=== PATIENT | male | born 1995 | race American Indian/Alaskan Native ===

== ENCOUNTER 2019-11-12 15:00 | Emergency (ER) | payer OTHER ==
[2019-11-12 15:14] VITALS: BP 132/61
[2019-11-12] MEDS ORDERED: KETOROLAC 30 MG/1 ML INJ IV ONE (16:33)
[2019-11-12] MEDS ORDERED: HYDROmorphone 1 MG/1 ML INJ IV ONE (16:33)
--- NOTE | 2019-11-12 17:47 | Emergency Department Report ---
ED Extremity Problem HPI - General Chief complaint: Shoulder Injury Stated complaint: SHOULDER PAIN Time Seen by Provider: 11/12/19 16:32 Source: patient Mode of arrival: Ambulatory Limitations: No Limitations - History of Present Illness Initial comments: Patient is a 24-year-old F [place] male who is currently in police custody who is presenting with right shoulder pain. Patient states he was playing basketball and his arm got tangled with another player. Patient states he felt immediate 10 out of 10 pain in right shoulder. Pain is worse with movement better with rest. He denies any other injury at this time Severity scale (0 -10): 10 - Related Data Previous Rx's Medication Instructions Recorded Last Taken Type Ibuprofen [Motrin 800 MG tab] 800 mg PO Q8HR PRN #10 tablet 11/12/19 Unknown Rx methOCARBAMOL [Robaxin TAB] 500 mg PO Q6H PRN #14 tablet 11/12/19 Unknown Rx Allergies Allergy/AdvReac Type Severity Reaction Status Date / Time amoxicillin Allergy Unknown Verified 11/12/19 15:08 ED Review of Systems ROS: Stated complaint: SHOULDER PAIN Other details as noted in HPI Comment: All other systems reviewed and negative ED Past Medical Hx - Past Medical History Previous Medical History?: Yes Hx Asthma: Yes - Surgical History Past Surgical History?: Yes Additional Surgical History: tonsillectomy - Social History Smoking Status: Never Smoker Substance Use Type: None - Medications Home Medications: Home Medications Medication Instructions Recorded Confirmed Last Taken Type Ibuprofen [Motrin 800 MG tab] 800 mg PO Q8HR PRN #10 tablet 11/12/19 Unknown Rx methOCARBAMOL [Robaxin TAB] 500 mg PO Q6H PRN #14 tablet 11/12/19 Unknown Rx ED Physical Exam - General Limitations: No Limitations General appearance: alert, in no apparent distress - Head Head exam: Present: atraumatic, normocephalic - Eye Eye exam: Present: normal appearance - ENT ENT exam: Present: mucous membranes moist - Neck Neck exam: Present: normal inspection - Respiratory Respiratory exam: Present: normal lung sounds bilaterally. Absent: respiratory distress, wheezes, rales - Cardiovascular Cardiovascular Exam: Present: regular rate, normal rhythm. Absent: systolic murmur, diastolic murmur, rubs, gallop - GI/Abdominal GI/Abdominal exam: Present: soft, normal bowel sounds. Absent: distended, tenderness, guarding - Rectal Rectal exam: Present: deferred - Extremities Exam Extremities exam: Present: normal inspection - Expanded Upper Extremity Exam Right Shoulder Exam: Present: tenderness, deformity, dislocation, tenderness over AC joint. Absent: normal inspection, full ROM Upper Arm exam: Present: normal inspection. Absent: tenderness Elbow exam: Present: normal inspection, full ROM. Absent: tenderness Forearm Wrist exam: Present: normal inspection. Absent: tenderness Hand Wrist exam: Present: normal inspection. Absent: full ROM Neurosensory exam: Present: radial nerve intact, ulnar nerve intact, median nerve intact Vascular: Present: normal capillary refill. Absent: vascular compromise - Back Exam Back exam: Present: normal inspection - Neurological Exam Neurological exam: Present: alert, oriented X3 - Psychiatric Psychiatric exam: Present: normal affect, normal mood - Skin Skin exam: Present: warm, dry, intact, normal color. Absent: rash ED Course Vital Signs 11/12/19 11/12/19 11/12/19 15:08 16:42 16:50 Temperature 97.7 F Pulse Rate 57 L Respiratory 16 16 16 Rate Blood Pressure 132/61 O2 Sat by Pulse 100 98 Oximetry 11/12/19 16:51 Temperature Pulse Rate Respiratory 16 Rate Blood Pressure O2 Sat by Pulse Oximetry - Orthopedic Joint Reduction Joint #1 Consent Obtained: verbal consent Time Out Performed: Yes Side: right Joint Reduction Location: shoulder Analgesia: other (10 cc of 2% lidocaine was injected into the right shoulder capsule) Local Anesthetic Used: Lidocaine 2% Shoulder Technique Used (if applicable): Cristhian Post-Reduction Neuro Exam: intact Post-Reduction Vascular Exam: intact Post Reduction X-Ray Obtained: Yes Post Reduction X-Ray Results: reduced Splint Applied: Yes Patient Tolerated Procedure: well ED Medical Decision Making - Radiology Data Reporting MD: Joe Novoa Dictation Time: November 12, 2019 15:14 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 COMPARISON: None. IMPRESSION: An anterior inferior dislocation is identified at the right glenohumeral joint. There is normal articulation at the AC joint. No associated fracture is appreciated on x-ray. No significant DJD. Signer Name: Joe Novoa Jr, MD Signed: 11/12/2019 3:14 PM Workstation Name: [id number] Repeat x-ray after reduction shows normal alignment and no fracture of the right shoulder - Medical Decision Making Patient placed in a shoulder immobilizer and will be discharged back to custody. Patient was given Motrin 800 and Robaxin for pain and spasm. Patient also given orthopedic follow-up Critical care attestation.: If time is entered above; I have spent that time in minutes in the direct care of this critically ill patient, excluding procedure time. ED Disposition Clinical Impression: Anterior shoulder dislocation Qualifiers: Encounter type: initial encounter Laterality: right Qualified Code(s): S43.014A - Anterior dislocation of right humerus, initial encounter Disposition: DC- TO HOME OR SELFCARE Is pt being admited?: No Does the pt Need Aspirin: No Condition: Stable Instructions: Shoulder Dislocation (ED) Referrals: REBECA JEONG MD [Staff Physician] - 3-5 Days Time of Disposition: 17:56
== END 2019-11-12 18:30 | disposition home or self-care (01) ==
LOC: ED 15:00 → EEVIPCON 15:00 → ED 18:30
DX: S43.014A Anterior dislocation of right humerus, initial encounter (principal); J45.909 Unspecified asthma, uncomplicated; Z90.49 Acquired absence of other specified parts of digestive tract; Z79.899 Other long term (current) drug therapy; Z88.0 Allergy status to penicillin; X58.XXXA Exposure to other specified factors, initial encounter; Y93.67 Activity, basketball; Y92.89 Other specified places as the place of occurrence of the external cause; Y99.8 Other external cause status
CPT/HCPCS: 23650; 73030; 96374; 96375; 99284; J1170; J1885